=== PATIENT | male | born 2005 | race Caucasian/White ===

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

== ENCOUNTER 2025-02-14 11:42 | Outpatient (CLI) | payer OTHER, SELFPAY ==
--- NOTE | ~2025-02-14 | XR_ITS ---
PA, oblique, and lateral views of the left ring finger CLINICAL HISTORY: Pain FINDINGS: There is acute, oblique, minimally/fracture the fourth proximal phalanx. No intra-articular extension. No other fracture or dislocation seen. Joint spaces are intact. Soft tissues are unremark able. IMPRESSION: Acute fracture the fourth proximal phalanx, as detailed above. Reviewed, dictated and finalized at location .
--- OUTSIDE RECORDS SUMMARY | 2025-02-14 11:49 | XMS_ITS | Referral Summary ---
Author Organization [facility] [address] Address [address] [place] [address] Phone Care Team Providers Care Thermodynamicist Name Role Phone Lashawn Contreras MD Primary Care Provider [phone] Encounters Date Type Department Care Team Description 02/01/2025 Results Follow-Up [facility] [place] [address] [place] [phone] Gabbi Da iSlva NP XR Finger 4Th Ring Left 01/31/2025 2:41 PM CDT - 01/31/2025 11:59 PM CDT Hospital Encounter [facility] Radiology - Outpatient Center at [address] [address] Finger injury, left, initial encounter Discharge Disposition: Discharge to home or self care 01/30/2025 4:30 PM CDT Office Visit [facility] [place] [address] [place] [id number] Noelle Zepeda NP Finger injury, left, initial encounter (Primary Dx) from Last 3 Months Allergies No known active allergies Medications FLUoxetine (PROzac) 20 mg capsule TAKE ONE CAPSULE BY MOUTH EVERY MORNING 30 capsule 6 0 Active Additional Information Patient not taking.Reported on 01/30/2025 dexmethylphenid ate XR (FOCALIN XR) 20 mg 24 hr capsule 0 Active cimetidine (TAGAMET) 300 mg tablet TAKE 1 TABLET (300 MG TOTAL) BY MOUTH DAILY 30 tablet 6 1 Active Additional Information Patient not taking.Reported on 01/30/2025 amoxicillin-cla vulanate (Augmentin) 875-125 mg per tablet Give one tablet by mouth twice a day for 10 days. 20 tablet 1 Active Additional Information Patient not taking.Reported on 01/30/2025 Active Problems Problem Noted Date Diagnosed Date Subacute cough 05/20/2022 Sinusitis 05/06/2021 Overview (05/06/2021): 05-06-21 Augmentin Warts 02/02/2018 Overview (03/12/2020): Responds well to cimetidine; is on this again Feb 2020 Leukopenia 03/21/2016 Overview (03/12/2020): Work up at [facility] showed simply chronic benign leukopenia Wears eyeglasses 10/24/2015 Overview (05/04/2017): For school. History of anxiety 10/21/2015 Overview (09/29/2021): & depression, OFF FLUOXETINE AND DONG WELL 2021 History of ADHD 10/04/2014 Overview (09/29/2021): OFF ALL MEDS 2021 AND DOING WELL! tried Focalin; 01/23 Strattera inconsistent results; Dr. Meghna Mosqueda involved . . . Tried Quillivant, Vyvance, Concerta, 04/25 Aptensio 60 . . . 08/26 Aptensio is working! Aptensio 60 mg in am & 30 mg noon then . . . BACK ON Focalin 30 mg XR in am and 20 mg XR late . . . OFF Acute streptococcal pharyngitis 09/22/2013 Overview (05/04/2017): . . . Back up + 12/23 amox Health care maintenance 2005 Overview (03/07/2019): Came for PE 03-07-19 then mom changed it to a shot only visit. 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 03/20/2016 12/22/2017 Lymphocytopenia 03/04/2016 05/04/2017 Overview (11/13/2016): Lymphopenia Immunizations Immunization Administration Dates Next Due DTaP 12/05/2010 DTaP / HiB 04/22/2006 DTaP / HiB / IPV 02/04/2007,02/19/2006, 6 HPV9 03/12/2020,03/07/2019,01/05/2019 Hep A, Pediatric 05/17/2007,11/08/2006 Hep B, Adolescent or Pediatric 04/22/2006,2005,2005 IPV 12/05/2010 Influenza, Quadrivalent, Spl it, Intramuscular 05/05/2017,05/18/2016 Influenza, Quadrivalent, Spl it, Preservative Free, Intramuscular 05/20/2022,06/26/2021,05/20/2020,05/15,05/16/2018 Influenza, Split 06/05/2013,05/24/2012 Influenza, Trivalent, IM (MDV) 5,06/27/2014,05/13/2011,06/16,05/26/2010 MMR 12/05/2010,11/08/2006 Meningococcal Conjugate (Menveo) 03/17/2023 Meningococcal MCV4P (Menactra) 11/06/2016 Pneumococcal Conjugate 7-Valent 11/09/19 07,04/22/2006,02/19/2006,12/21 Tdap 11/06/2016 Varicella 12/05/2010,11/08/2006 Social History Tobacco Use Types Packs/Day Years Used Date Smoking Tobacco: Never Assessed Sex and Gender Information Value Date Recorded Sex Assigned at Not on file 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 Gender Identity Not on file Sexual Orientation Not on file Last Filed Vital Signs Vital Sign Reading Time Taken Comments Blood Pressure 118/72 01/30/2025 4:44 PM CDT Pulse 60 01/30/2025 4:44 PM CDT Temperature 36.6 C (97.8 F) 01/30/2025 4:44 PM CDT Respiratory Rate 16 01/30/2025 4:44 PM CDT Oxygen Saturation 98% 01/30/2025 4:44 PM CDT Inhaled Oxygen Concentration - - Weight 68 kg (150 lb) 01/30/2025 4:44 PM CDT Height 177.8 cm (5' 10) 01/30/2025 4:44 PM CDT Body Mass Index 21.52 01/30/2025 4:44 PM CDT Plan of Treatment Not on file Procedures Procedure Name Priority Date/Time Associated Diagnosis Comments XR FINGER 4TH RING LEFT Schedule SUSANA, Read SUSANA (Appt Today, Awaiting Results) 01/31/2025 2:54 PM CDT Finger injury, left, initial encounter from Last 3 Months Results * XR Finger 4Th Ring Left (01/31/2025 2:54 PM CDT) Anatomical Region Laterality Modality Upper Extremities, Hand, Fingers Left Computed Radiography 01/31/2025 11:4 8 PM CDT Narrative 01/31/2025 11:50 PM CDT EXAM DESCRIPTION: XR FINGER 4TH RING LEFT REASON FOR STUDY: Omayra finger Patient states he injured his 4th digit PIP area on January 19, 2025 wrestling. Noted swelling. No previous injury. No surgery TECHNIQUE: There are 3 radiographic view(s) of the left 4th finger . COMPARISON: No prior FINDINGS: There is an oblique jtjn-fn-zmjnzqprje displaced fracture of the mid to distal shaft of the proximal phalanx of the left 4th finger. No definite articular extension. On the lateral view is an ossification along the palmar aspect of the 4th finger at the level of the head neck junction of the proximal phalanx. Additional avulsion is possible. No other fracture is seen. Joint spaces are intact. IMPRESSION: 1. There is an oblique huqh-ul-lpqlseyjav displaced fracture of the mid to distal shaft of the proximal phalanx of the left 4th finger. No definite articular extension. 2. On the lateral view is an ossification along the palmar aspect of the head neck junction of the proximal phalanx of the 4th finger. Additional avulsion is possible. THIS IS AN ELECTRONICALLY VERIFIED FINAL REPORT 01/31/2025 11:50 PM - Electronically signed by Cristian Sharma M.D. MJ: DIYA Report ID: [id number] Reading Location: [id number] Procedure Note Cristian Sharma MD - 01/31/2025 EXAM DESCRIPTION: XR FINGER 4TH RING LEFT REASON FOR STUDY: Jammed finger Patient states he injured his 4th digit PIP area on January 19, 2025wrestling. Noted swelling. No previous injury. No surgery TECHNIQUE: There are 3 radiographic view(s) of the left 4th finger . COMPARISON: No prior FINDINGS: There is an oblique cllm-gg-zjklqbfyea displaced fracture of the mid todistal shaft of the proximal phalanx of the left 4th finger. No definitearticular extension. On the lateral view is an ossification along the palmar aspect of the 4th finger at the level of the head neck junction of the proximal phalanx. Additional avulsion is possible. No other fracture is seen. Joint spaces are intact. IMPRESSION: 1. There is an oblique myqf-yn-herujzixth displaced fracture of the midto distal shaft of the proximal phalanx of the left 4th finger. No definite articular extension. 2. On the lateral view is an ossification along the palmar aspect of the head neck junction of the proximal phalanx of the 4th finger. Additional avulsion is possible. THIS IS AN ELECTRONICALLY VERIFIED FINAL REPORT 01/31/2025 11:50 PM - Electronically signed by Cristian Sharma M.D. MJ: DIYA Report ID: [id number] Reading Location: [id number] Noelle Zepeda AIRCRAFT QUALITY CONTROL INSPECTOR IMG XR PROCEDURES Final Result from Last 3 Months Insurance [facility] [place] [address] [place] [id number] [facility] [place] [address] [facility] CHOICE PLUS [employer] [id number] [place] [address] [facility] CHOICE PLUS [facility] [address] [facility] CHOICE PLUS Care Teams Thermodynamicist Relationship Specialty Start Date End Date Lashawn Contreras MD [address] [place] [address] PCP - General 11/06/16
--- OUTSIDE RECORDS SUMMARY | 2025-02-14 11:49 | XMS_ITS | Clinical Summary ---
Author Organization [facility] [address] Address [address] [place] [address] Phone Care Team Providers Care Bliss Press Operator Name Role Phone Lashawn Contreras MD Primary Care Provider [phone] Allergies No known active allergies Medications FLUoxetine [...] day for 10 days. 20 tablet 1 1 Active Additional Information Patient not taking.Reported on 01/30/2025 Active Problems Problem Noted Date Diagnosed Date Subacute cough 05/20/2022 Sinusitis 05/06/2021 Overview (05/06/2021): 9-28- Augmentin Warts 02/02/2018 Overview (03/12/2020): Responds well to cimetidine; is on this again Feb 2020 Leukopenia 03/21/2016 Overview (03/12/2020): Work up at [facility] showed simply chronic benign leukopenia Wears eyeglasses [...] . . . Back up + 12/23 [facility] 2005 Overview (03/07/2019): Came for PE 03-07-19 then mom changed it to a shot only visit. 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 03/20/2016 12/22/2017 Lymphocytopenia 03/04/2016 05/04/2017 Overview (11/13/2016): Lymphopenia Encounters Date Type Department Care Team Description 02/01/2025 Results Follow-Up [facility] [place] [address] [place] [address] Gabbi Da Silva, KATEY XR Finger 4Th Ring Left 01/31/2025 2:41 PM CDT - 01/31/2025 11:59 PM CDT Hospital Encounter [facility] Radiology - Outpatient Center at [place] [address] [place] [address] [place] [address] Finger injury, left, initial encounter Discharge Disposition: Discharge to home or self care 01/30/2025 4:30 PM CDT Office Visit [facility] [place] [address] [place] [address] Noelle Zepeda, GENERATOR OPERATOR Finger injury, left, initial encounter (Primary Dx) from Last 3 Months Immunizations Immunization Administration Dates Next Due DTaP [...] 7-Valent 11/09/19 07,04/22/2006,02/19/2006,12/21 Tdap 11/06/2016 Varicella 12/05/2010,11/08/2006 Surgical History Surgery Date Site/Laterality Comments NO PAST SURGERIES Medical History Medical History Date Comments [place] 2005 8-2 39 wk nl pre g - pneumothorax O+/A+; echo nl Family History Medical History Relation Name Comments Seizures Mother Partial complex seizures - Dr. Miller. 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[employer] Gender Identity Not on file Sexual Orientation Not on file Obstetrics History Growth Chart Information Age Height Weight [id number] th Percentile BMI Percentile Head Circum Head Circum Percentile Date 19 years 177.8 cm (5' 10) 68 kg (150 lb) 34.51%* 2024 16 years 63.6 kg (140 lb 3.2 oz) 2021 15 years 177.2 cm (5' 9.75) 64.7 kg (142 lb 9.6 oz) 51.74%* 2021 15 years 61.1 kg (134 lb 9.6 oz) 2020 15 years 175.3 cm (5' 9) 61.2 kg (135 lb) 51.61%* 2020 14 years 175.3 cm (5' 9) 61.2 kg (135 lb) 51.81%* 2020 14 years 175.3 cm (5' 9) 61.2 kg (135 lb) 54.85%* 2019 14 years 175.3 cm (5' 9) 60.4 kg (133 lb 3.2 oz) 53.97%* 2019 13 years 170.8 cm (5' 7.25) 54.3 kg (119 lb 12.8 oz) 48.73%* 2018 12 years 51.3 kg (113 lb) 2018 12 years 155.6 cm (5' 1.25) 41.7 kg (92 lb) 39.82%* 2017 11 years 150.5 cm (4' 11.25) 38.1 kg (84 lb) 37.35%* 2016 11 years 36.7 kg (81 lb) 2016 11 years 145.4 cm (4' 9.25) 34.5 kg (76 lb) 32.38%* 2016 10 years 30.8 kg (68 lb) 2015 10 years 142.9 cm (4' 8.25) 29 kg (64 lb) 3.76%* 2015 10 years 143 cm (4' 8.3) 29.7 kg (65 lb 7.6 oz) 6.84%* 2015 10 years 141 cm (4' 7.5) 31.3 kg (69 lb) 31.29%* 2015 9 years 137.8 cm (4' 6.25) 29 kg (64 lb) 25.56%* 2014 8 years 28.6 kg (63 lb) 2014 8 years 135.3 cm (4' 5.25) 26.1 kg (57 lb 8 oz) 9.59%* 2013 8 years 26.8 kg (59 lb) 2013 8 years 132.1 cm (4' 4) 25.9 kg (57 lb) 23.48%* 2013 7 years 26.1 kg (57 lb 8 oz) 2013 7 years 25.4 kg (56 lb) 2013 7 years 128.3 cm (4' 2.5) 24.7 kg (54 lb 8 oz) 32.83%* 2012 7 years 124.5 cm (4' 1) 22 kg (48 lb 8 oz) 13.14%* 2012 6 years 122.6 cm (4' 0.25) 22 kg (48 lb 8 oz) 25.80%* 2011 * CDC (Boys, 2-20 Years) Last Filed Vital Signs Vital Sign Reading [...] 01/30/2025 4:44 PM CDT Plan of Treatment Health Maintenance Due Date Last Done Comments Depression Screening 2005 Hepatitis C Screening 2005 Meningococcal B Vaccine (1 o f 2 - Standard) 2021 Regular Well Visit/Exam 18-64 10/21/2023 Covid-19 Vaccine (3 - 2023-2 5 season) 2024 01/23/2021, 12/31/2020 DTaP/Tdap/Td Vaccine (7 - Td or Tdap) 11/06/2026 11/06/2016, 12/05/2010, 02/04/2007, Additional history exists Hepatitis B Screening Completed 04/22/2006 , 2005, 2005 Pneumococcal vaccine <65 Completed 007, 04/22/2006, 02/19/2006, Additional history exists Varicella Vaccines Completed 12/05/2010, 11/08/2006 HPV Vaccines Completed 03/12/2020, 02/08, 01/05/2019 Meningococcal Vaccine Completed 03/17/2023, 017 Influenza Vaccine Completed 05/25/2024, , 06/26/2021, Additional history exists Procedures Procedure Name Priority Date/Time Associated Diagnosis [...] No prior FINDINGS: There is an oblique kyfl-ec-hyyqhutlxy displaced fracture of the mid to distal [...] intact. IMPRESSION: 1. There is an oblique heos-ht-wlenbksuou displaced fracture of the mid to distal [...] 11:50 PM - Electronically signed by Cristian KEANE: DIYA Report ID: [id number] Reading Location: [id number] Procedure Note Cristian Sharma MD - 01/31/2025 EXAM DESCRIPTION: XR FINGER 4TH RING LEFT REASON FOR STUDY: Jammed finger Patient states he injured his 4th digit PIP area on January 19, 2025wrestling. Noted swelling. No previous injury. No surgery TECHNIQUE: There are 3 radiographic view(s) of the left 4th finger . COMPARISON: No prior FINDINGS: There is an oblique fpwe-gv-sgsmpvjqqz displaced fracture of the mid todistal shaft [...] intact. IMPRESSION: 1. There is an oblique tlue-pw-svulhexqod displaced fracture of the midto distal shaft [...] 11:50 PM - Electronically signed by Cristian KEANE: DIYA Report ID: [id number] Reading Location: [id number] Noelle Zepeda GENERATOR OPERATOR IMG XR PROCEDURES Final Result from Last [address] [place] [place] [address] [facility] CHO[facility] PLUS [facility] HMO/PPO Address: [facility] [address] [place], [place] [id number] [place] [address] [place] [address] [facility] CHOICE PLUS [facility] HMO/PPO Address: [address] [address] [place] [address] [facility] SIG [id number] [facility] HMO/PPO Address: [facility] [address] [place] [address] [place] [address] [facility] CHOICE PLUS [facility] HMO/PPO Address: [address] [address] [place] [address] [facility] [place] [address] [facility] CHOICE PLUS [facility] HMO/PPO Address: [address] [address] [place] [address] Care Teams Bliss Press Operator Relationship Specialty Start Date End Date Lashawn Contreras MD [address] [place] [address] PCP - General 11/06/16
--- OUTSIDE RECORDS SUMMARY | 2025-02-14 11:49 | XMS_ITS | Data Portability ---
Author Organization [place] [facility] [employer], Main Office Address [address] [place] [address] Care Team Providers Care Cannon Pinion Adjuster Name Role Phone MANJIT BRADLEY Primary Care Provider MANJIT BRADLEY Referring Provider Assessment Encounter Date Assessment Date Assessment LastModified by Organization Details LastModified Time 02/06/2025 02/06/2025 19-year-old patient presents today with left hand ring finger pain after an injury 3 weeks ago. He was wrestling with friends when he jammed the finger. He thought it would get better on his own so he iced it and filippo taped. The pain got better, but he is still unable to fully flex or extend it. He presented to the ED and was told it was fractured. He was not immobilized. He presents today with his mother. Review of systems per patient questionnaire Imaging: X-rays reviewed from January 31 show 4th digit mildly displaced oblique fracture of the proximal phalanx. Physical exam: Left ring finger edematous. Tender with palpitation over proximal phalanx. Unable to fully flex and extend finger. Sensation intact. Imaging was discussed with Dr. Ramos. He would like to refer Jai to a hand specialist as this may need surgical fixation. Referral sent to Dr. Sierra. We will have him continue filippo taping. We will give him work restrictions of no use of left hand. We can see him back as needed. [email or web address] Not available 02/07/2025 12:23:08 Plan of Treatment Reminders Order Date Submit Date Provider Last Modified By Organization Details Last Modified Time Details Appointments None recorded. Lab None recorded. Referral hand surgeon referral - Please contact patient to schedule 2024 025 RICARDO Sierra MD, [address] [place] [address], [place], [address], 15:28:59 Procedures None recorded. Surgeries None recorded. Imaging None recorded. Medication Orders None recorded. Patient TargetsNo targets recorded. Patient InstructionsNo instructions recorded. Reason for Referral Hand Surgeon Referral for Pa in of left hand Please contact patient to schedule Referring Physician: Ainsley Caldwell, Orthopedic Surgery, Encounter Date: 02/06/2025 Results Created Date Observation Date Name Description Value Unit Range Abnormal Flag Note LastModifiedBy Organization Detail LastModifiedTime 02/03/2001/31/2025 XR, finge r(s) No observ ation record ed. [email or web address] Not Available 2024 10:08:27 Result Notes None recorded. Problems Name Problem SNOMED Code Status Onset Date Resolution Date Notes Provider Name and Address Organization Details Recorded Time Pain of left hand [id number] Active 025 Alyse Chang CNA [employer] 15:47:01 Problem Notes None recorded. Medical Equipment None Reported. Allergies No known drug allergies Medications Not known to be on any medication Vitals Date Recorded Body height Body mass index (BMI) Body mass index (BMI) [Percentile] Per age and sex Body weight Provider Name and Address Organization Details Last Updated DateTime 02/06/2025 177.8 cm 21.2 kg/m2 30 % 55690.67 g Alyse Chang CNA [employer] 02/06/2025 15:45:01 Social History Question Answer Notes LastModified by [employer] Details LastModified Time Tobacco Smoking Status Never Smoker SAMMIE [email or web address] 02/06/2025 15:45:54 What Was The Date Of Your Most Recent Tobacco Screening? 02/06/2025 Information not available 02/06/2025 Sex: Unknown Functional Status Question Answer Note LastModified by [employer] Details LastModified Time What is your level of alcohol consumption? Occasional Information not available 02/06/2025 Mental Status None recorded. Family History Nothing Reported. Medical History No medical history recorded. Past Encounters Encounter ID Performer Location Encounter Start Date Encounter Closed Date Diagnosis/Indication Diagnosis SNOMED-CT Code Diagnosis ICD10 Code Diagnosis Note [id number] Jason Ramos MD [facility] [address] [place] [address] 02/06/2025 15:31:11 02/06/2025 16:20:36 Pain of left hand [id number] 32224 M79.642 Health Concerns Section Related Observation LastModified by Organization Detai ls LastModified Time None Recorded Concern Status LastModified by Organization Details LastModified Time None Recorded Advance Directives Directive None Recorded Payers Insurance Date Sequence Insurance Name Policy Number Policy David Covered Member ID David Member ID Guarantor Name 02/06/2025 2 [facility] [id number] Ruby Pablo [id number] Jai Pablo 02/06/2025 1 [employer] (POS [place]) [id number] Hong Pablo [id number] Jai Pablo
--- OUTSIDE RECORDS SUMMARY | 2025-02-14 11:49 | XMS_ITS | Clinical Summary ---
Author Organization [facility] rofessional Office [facility] Address [address] [place] [address] Care Team Providers Care District Sales Representative Name Role Phone Unavailable Primary Care Provider Unavailabl e Medications dexmethylphenida te (Focalin) 10 mg tablet Take 10 mg by mouth daily in the morning. 06/08/2024 Active Active Problems Patient Care Coordination No te Formatting of this note migh t be different from the original. Prev 06/16/24 Problem Noted Date Diagnosed Date Encounter for routine adult health examination with abnormal findings 06/16/2024 Encounters Date Type Department Care Team Description 01/23/2025 External Device Data STL ABSTRACTION Provider, Abstract 12/28/2024 External Device Data STL ABSTRACTION Provider, Abstract 12/28/2024 External Device Data STL ABSTRACTION Provider, Abstract 12/27/2024 External Device Data STL ABSTRACTION Provider, Abstract 12/26/2024 External Device Data STL ABSTRACTION Provider, Abstract from Last 3 Months Immunizations Immunization Administration Dates Next Due INFLUENZA VACCINE TRIVALENT SPLIT VIRUS, (6 MOS UP), 0.5ML (PF), IM 05/25/2024 Family History Medical History Relation Name Comments High Cholesterol Father Relation Name Status Comments Father Social History Tobacco Use Types Packs/Day Years Used Date Smoking Tobacco: Never Passive Smoke Exposure: Never Smokeless Tobacco: Never Tobacco Cessation:Counseling Given: No Alcohol Use Standard Drinks/Week Comments Never 0 (1 standard drink = 0.6 oz pur e alcohol) Sex and Gender Information Value Date Recorded Sex Assigned at Not on file Legal Sex Male 11:10 AM CDT Gender Identity Not on file Sexual Orientation Not on file Last Filed Vital Signs Vital Sign Reading Time Taken Comments Blood Pressure 119/72 06/16/2024 2:37 PM TOP LIFT SCOURER Pulse 77 06/16/2024 2:30 PM TOP LIFT SCOURER Temperature - - Respiratory Rate - - Oxygen Saturation 96% 06/16/2024 2:30 PM TOP LIFT SCOURER Inhaled Oxygen Concentration - - Weight 69.9 kg (154 lb) 06/16/2024 2:30 PM TOP LIFT SCOURER Height 177.8 cm (5' 10) 06/16/2024 2:30 PM TOP LIFT SCOURER Body Mass Index 22.1 06/16/2024 2:30 PM TOP LIFT SCOURER Body Mass Index Percentile 47.62% 06/16/2024 2: 30 PM TOP LIFT SCOURER Growth Chart: [facility] (Boys, 2-2 0 Years) Plan of Treatment Upcoming Encounters Date Type Department Care Team (Late st Contact Info) Description 06/15/2025 2:20 PM TOP LIFT SCOURER Office Visit [facility] Primary [facility] [address] [place] [address] Ronni Gordon MD [address] [place] [address] [address] [place] [address] Health Maintenance Due Date Last Done Comments CHLAMYDIA SCREENING (ANNUAL) 11-24 YEARS 2016 INFLUENZA VACCINE (#1) 2025 , 05/20/2022, 06/26/2021, Additional history exists DTAP/TDAP/TD VACCINES (7 - T d or Tdap) 11/06/2026 11/06/2016, 12/05/2010, 02/04/2007, Additional history exists HEPATITIS B VACCINES Completed 04/22/2006, 2005, 2005 HPV VACCINES Completed 03/12/2020, 02/08, 01/05/2019 Insurance [facility] [id number] POS II
== END 2025-02-14 11:43 | disposition home or self-care (01) ==
PROVIDERS: PCP Pediatrics; Visit Provider Orthopaedic Surgery Hand Surgery
DX: S92.515A Nondisplaced fracture of proximal phalanx of left lesser toe(s), initial encounter for closed fracture (principal); X58.XXXA Exposure to other specified factors, initial encounter
CPT/HCPCS: 73140

== ENCOUNTER 2025-04-18 13:11 | Outpatient (CLI) | payer OTHER, SELFPAY ==
--- NOTE | ~2025-04-18 | XR_ITS ---
EXAMINATION: XR hand LT min 3V, 04/18/2025 13:27 CDT HISTORY: left hand pain, 4TH DIGIT FX X 2 MOS AGO F/U COMPARISON: No comparisons available. Findings: Healing oblique fracture slightly displaced proximal phalanx fourth digit. No significant degenerative changes. Soft tissues unremarkable. Impression: Healing fracture Reviewed, dictated and finalized at location A. Impression: Healing fracture
--- OUTSIDE RECORDS SUMMARY | 2025-04-18 13:57 | XMS_ITS | Clinical Summary ---
Author Organization [facility] rofessional Office [facility] Address [address] [place] [address] Care Team Providers Care Store Facility Technician Name Role Phone Unavailable Primary Care Provider [...] Comments Blood Pressure 119/72 06/16/2024 2:37 PM CROP RANCH HAND Pulse 77 06/16/2024 2:30 PM CROP RANCH HAND Temperature - - Respiratory Rate - - Oxygen Saturation 96% 06/16/2024 2:30 PM CROP RANCH HAND Inhaled Oxygen Concentration - - Weight 69.9 kg (154 lb) 06/16/2024 2:30 PM CROP RANCH HAND Height 177.8 cm (5' 10) 06/16/2024 2:30 PM CROP RANCH HAND Body Mass Index 22.1 06/16/2024 2:30 PM CROP RANCH HAND Body Mass Index Percentile 47.62% 06/16/2024 2:3 0 PM CROP RANCH HAND Growth Chart: [facility] (Boys, 2-2 0 Years) Plan of Treatment Upcoming Encounters Date Type Department Care Team (Late st Contact Info) Description 06/15/2025 2:20 PM CROP RANCH HAND Office Visit [facility] Care [address] [place] [address] Ronni Gordon MD [address] [place] [address] [address] [place] [address] Health Maintenance Due Date Last Done Comments CHLAMYDIA SCREENING (ANNUAL) 11-24 YEARS 2016 INFLUENZA VACCINE (#1) 2025 , 05/20/2022, 06/26/2021, Additional history exists DTAP/TDAP/TD VACCINES (7 - T d or Tdap) 11/06/2026 11/06/2016, 12/05/2010, 02/04/2007, Additional history exists HEPATITIS B VACCINES Completed 04/22/2006, 2005, 2005 HPV VACCINES Completed 03/12/2020, 02/08, 01/05/2019 [address] [facility] [place] [id number] [employer] [id number] POS II
--- OUTSIDE RECORDS SUMMARY | 2025-04-18 13:57 | XMS_ITS | Clinical Summary ---
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 . . Back up + 12/23 [facility] 2005 Overview (03/07/2019): Came for PE 03-07-19 then mom changed it to a shot only visit. 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 03/20/2016 12/22/2017 Lymphocytopenia 03/04/2016 05/04/2017 Overview (11/13/2016): Lymphopenia Encounters Date Type Department Care Team Description 02/01/2025 Results Follow-Up [facility] [address] [place] [address] Gabbi Da Silva, KATEY XR Finger 4Th Ring Left 01/31/2025 2:41 PM CDT - 01/31/2025 11:59 PM CDT Hospital Encounter [facility] [place] [address] [place] [address] [place] [address] Finger injury, left, initial encounter Discharge Disposition: Discharge to home or self care 01/30/2025 4:30 PM CDT Office Visit [facility] [place] [address] [place] [address] Noelle Zepeda, PLASTIC SHEETS SUPERVISOR Finger injury, left, initial encounter (Primary Dx) [...] SURGERIES Medical History Medical History Date Comments [facility] 2005 8-2 39 wk nl pre g [...] on file 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 Gender Identity Not on file Sexual Orientation Not on file Obstetrics History Growth Chart Information Age Height Weight Oqcsfr-uvf-xhms th Percentile BMI Percentile Head Circum Head [...] - 2023-2 5 season) 2024 01/23/2021, 12/31/2020 Influenza Vaccine (#1) 2025 , 05/20/2022, 06/26/2021, Additional history exists DTaP/Tdap/Td Vaccine (7 - Td or Tdap) 11/06/2026 11/06/2016, 12/05/2010, 02/04/2007, Additional history exists Hepatitis B Screening Completed 04/22/2006 , 2005, 2005 Pneumococcal vaccine <65 Completed 007, 04/22/2006, 02/19/2006, Additional history exists Varicella Vaccines Completed 12/05/2010, 11/08/2006 HPV Vaccines Completed 03/12/2020, 02/08, 01/05/2019 Meningococcal Vaccine Completed 03/17/2023, 017 Procedures Procedure Name Priority Date/Time Associated Diagnosis [...] No prior FINDINGS: There is an oblique amop-yh-nxajeblqqn displaced fracture of the mid to distal [...] intact. IMPRESSION: 1. There is an oblique xmmp-xm-deedoofgqh displaced fracture of the mid to distal [...] signed by Cristian KEANE: DIYA Report ID: [id number] Reading Location: [id number] Procedure Note Cristian Sharma MD - 01/31/2025 EXAM DESCRIPTION: XR FINGER 4TH RING LEFT REASON FOR STUDY: Jammed finger Patient states he injured his 4th digit PIP area on January 19, 2025wrestling. Noted swelling. No previous injury. No surgery TECHNIQUE: There are 3 radiographic view(s) of the left 4th finger . COMPARISON: No prior FINDINGS: There is an oblique iqos-ri-unbflxkxxe displaced fracture of the mid todistal shaft [...] intact. IMPRESSION: 1. There is an oblique kmzn-hy-vilxuiexbg displaced fracture of the midto distal shaft [...] Cristian Sharma M.D. MJ: DIYA Report ID: [id number] Reading Location: [id number] Noelle Zepeda PLASTIC SHEETS SUPERVISOR IMG XR PROCEDURES Final Result from Last 3 Months Insurance [facility] [place] [address] [facility] [place] [address] [facility] [employer] [employer] [address] [place] [address] [facility] [place] [address] [facility] [employer] [employer] Care Teams Event Promotions Coordinator Relationship Specialty Start Date End Date Lashawn Contreras MD [address] [place] [address] PCP - General 11/06/16
== END 2025-04-18 13:12 | disposition home or self-care (01) ==
PROVIDERS: PCP Pediatrics; Visit Provider Orthopaedic Surgery Hand Surgery
DX: S62.615A Displaced fracture of proximal phalanx of left ring finger, initial encounter for closed fracture (principal); X58.XXXA Exposure to other specified factors, initial encounter
CPT/HCPCS: 73130

== ENCOUNTER 2025-07-17 09:37 | Outpatient (CLI) | payer OTHER, SELFPAY ==
--- NOTE | ~2025-07-17 | XR_ITS ---
EXAMINATION: XR hand LT min 3V, 07/17/2025 9:50 DOUGH MACHINE OPERATOR HISTORY: closed displacement fracture, follow up COMPARISON: No comparisons available. Findings: Healing fracture of the distal aspect proximal phalanx fourth digit, most of the fracture appears healed. No significant degenerative changes. Soft tissues unremarkable. Impression: Healing fracture. Reviewed, dictated and finalized at location P. H MACHINE OPERATOR Impression: Healing fracture.
== END 2025-07-17 09:38 | disposition home or self-care (01) ==
PROVIDERS: PCP Pediatrics; Visit Provider Orthopaedic Surgery Hand Surgery
DX: S62.615D Displaced fracture of proximal phalanx of left ring finger, subsequent encounter for fracture with routine healing (principal); X58.XXXD Exposure to other specified factors, subsequent encounter
CPT/HCPCS: 73130